=== PATIENT | male | born 1985 | race Hispanic/Latino ===

== ENCOUNTER 2018-09-19 15:57 | Emergency (ER) | payer BC ==
[2018-09-19 16:12] VITALS: BP 132/81; PULSE 94; RESP 16; TEMP 98.4; O2SAT 96
--- NOTE | 2018-09-19 16:24 | ED PDOC ---
HPI: Male Pain Time Seen by Provider: 09/19/18 16:06 Chief Complaint (Nursing): Male Genitourinary History Per: Patient Onset/Duration Of Symptoms: Hrs (4) Current Symptoms Are (Timing): Still Present Severity: Mild Associated Symptoms: Back Pain. denies: Nausea, Vomiting, Urinary Symptoms Alleviating Factors: None Additional Complaint(s): Right testicular pain x 4 hrs. Was working out at gym earlier today. Pain is in right anterior thigh and radiates up to right testicle. denies dyauria or hematuria. Denies nausea or vomiting. denies injury Past Medical History Vital Signs: Last Vital Signs Temp 98.4 F 09/19/18 16:12 Pulse 94 H 09/19/18 16:12 Resp 16 09/19/18 16:12 BP 132/81 09/19/18 16:12 Pulse Ox 96 09/19/18 16:12 Primary Care Provider: FAMILY PROVIDER,NO - Medical History PMH: Back Problems (sciatica) - Family History Family History: States: Unknown Family Hx - Home Medications Home Medications: Ambulatory Orders Medication Instructions Recorded Naproxen [Naprosyn] 500 mg PO Q12H #20 tab 09/19/18 - Allergies Allergies/Adverse Reactions: Allergies Allergy/AdvReac Type Severity Reaction Status Date / Time Unobtainable Allergy Verified 09/19/18 16:13 Review of Systems Constitutional: Negative for: Fever Gastrointestinal: Negative for: Abdominal Pain Genitourinary Male: Positive for: Other (testicular pain). Negative for: Dysu mitesh, Frequency Physical Exam - Physical Exam Appears: Positive for: Non-toxic, No Acute Distress Skin: Positive for: Normal Color, Warm, DRY Gastrointestinal/Abdominal: Positive for: Bowel Sounds, Soft. Negative for: Tenderness, Hernia Male Genital Exam: Positive for: normal genitalia, no hernia. Negative for: epididymal tenderness, hernia mass, lesions, scrotum tenderness (R), scrotum tenderness (L), testicular tenderness (R), testicular tenderness (L) - ECG O2 Sat by Pulse Oximetry: 96 Disposition - Clinical Impression Clinical Impression: Groin strain, Hydrocele - Patient ED Disposition Is Patient to be Admitted: No Counseled Patient/Family Regarding: Studies Performed, Diagnosis, Need For Followup, Rx Given - Disposition Referrals: Jorge L Cheng Jr., MD [Staff Provider] - Disposition: Routine/Home Disposition Time: 18:49 Condition: FAIR Prescriptions: Naproxen [Naprosyn] 500 mg PO Q12H #20 tab Instructions: Groin Strain, Hydrocele Forms: [facility] (Scottish)
[2018-09-19 18:11] LABS: URINE BILIRUBIN NEGATIVE (NEGATIVE); URINE BLOOD NEGATIVE (NEGATIVE); URINE CLARITY CLEAR (Clear); URINE COLOR YELLOW (YELLOW); URINE GLUCOSE (UA) NEG (NEGATIVE); URINE LEUKOCYTE ESTERASE NEG Leu/uL (Negative); URINE PROTEIN NEGATIVE (NEGATIVE); URINE UROBILINOGEN 0.2-1.0 mg/dL (0.2-1.0)
--- NOTE | 2018-09-19 18:49 | US ---
Date of service: 09/19/2018 HISTORY: Right testicular pain TECHNIQUE: Realtime sonography through the scrotum with color and doppler flow. COMPARISON: None Available. FINDINGS: RIGHT TESTICLE: Measures 4.8 x 2.3 x 3.5 cm. Homogeneous echotexture. Blood flow is demonstrated. RIGHT EPIDIDYMIS: Unremarkable. LEFT TESTICLE: Measures 4.3 x 2.4 x 2.6 cm. Homogeneous echotexture. Blood flow is demonstrated. LEFT EPIDIDYMIS: Unremarkable. HYDROCELE: Small bilateral hydroceles. VARICOCELE: None. OTHER FINDINGS: None. IMPRESSION: Small bilateral hydroceles.
== END 2018-09-19 18:55 | disposition home or self-care (01) ==
LOC: H.ER 15:57
DX: S39.011A Strain of muscle, fascia and tendon of abdomen, initial encounter (principal); N43.3 Hydrocele, unspecified